=== PATIENT | female | born 1950 | race Hispanic/Latino ===

== ENCOUNTER 2021-12-03 15:33 | Emergency (ER) | payer MEDICARE, OTHER ==
[2021-12-03 16:01] VITALS: BP 113/49
--- NOTE | 2021-12-03 16:27 | Emergency Department Report ---
HPI - General Chief Complaint: Abdominal Pain Time Seen by Provider: 12/03/21 16:10 - HPI HPI: 71-year-old female presents to the emergency department with complaint of left-sided groin pain and feeling a "knot" started upon waking this morning. At first she says that the "knot" was down by the vagina/labia, then later she and after pressing on it she says that it "moved up here" (top of the groin), and then says "and later it was just gone." He denies any vaginal bleeding, vaginal discharge, dysuria, abdominal pain, back pain, fever. She denies any past medical history. She has not taken anything for symptoms prior to presentation. No recent travel or sick contacts at home. ED Past Medical Hx - Social History Smoking Status: Current Every Day Smoker Substance Use Type: None - Medications Home Medications: Home Medications Medication Instructions Recorded Confirmed Last Taken Type carisoprodoL [Soma] 350 mg PO QID 08/27/15 08/27/15 Unknown History HYDROcodone/APAP 7.5-325 [[place] 1 each PO Q6HR PRN #20 tablet 08/28/15 Unknown Rx 7.5/325] Sulfamethoxazole/Trimethoprim 1 each PO BID #20 tablet 08/28/15 Unknown Rx [Bactrim DS TAB] cephALEXin [Keflex] 500 mg PO Q6HR #40 capsule 08/28/15 Unknown Rx ED Review of Systems ROS: Stated complaint: LT LOWER PAIN Other details as noted in HPI Comment: All other systems reviewed and negative Constitutional: denies: chills, fever Eyes: denies: eye pain, vision change ENT: denies: ear pain, throat pain Respiratory: denies: cough, shortness of breath Cardiovascular: denies: chest pain, palpitations Gastrointestinal: other (A groin "knot" and left sided groin pain). denies: abdominal pain, vomiting Genitourinary: denies: dysuria, discharge Musculoskeletal: denies: back pain, arthralgia Skin: denies: rash, pruritus Neurological: denies: headache, weakness Physical Exam - Physical Exam Vital Signs: Vital Signs 12/03/21 15:59 Temperature 97.7 F Pulse Rate 77 Respiratory 16 Rate Blood Pressure 113/49 [Left] O2 Sat by Pulse 99 Oximetry Physical Exam: GENERAL: The patient is well-developed well-nourished. HENT: Normocephalic. Atraumatic. Patient has moist mucous membranes. EYES: Extraocular motions are intact. NECK: Supple. Trachea is midline. CHEST/LUNGS: Clear to auscultation. There is no respiratory distress noted. HEART/CARDIOVASCULAR: Regular. There is no tachycardia. There is no murmur. ABDOMEN: Abdomen is soft, nontender. Patient has normal bowel sounds. SKIN: Skin is warm and dry. NEURO: The patient is awake, alert, and oriented. The patient is cooperative. Normal speech. MUSCULOSKELETAL: There is no tenderness or deformity. There is no limitation range of motion. : There is reproducible left-sided inguinal/groin pain. No palpable hernia, lymphadenopathy. ED Course Vital Signs 12/03/21 15:59 Temperature 97.7 F Pulse Rate 77 Respiratory 16 Rate Blood Pressure 113/49 [Left] O2 Sat by Pulse 99 Oximetry - Reevaluation(s) Reevaluation #1: 12/03/21 16:26 I was chaperoned for groin examination by nurse practitioner Evi. ED Medical Decision Making - Lab Data Result diagrams: 12/03/21 16:36 12/03/21 16:36 Lab Results 12/03/21 12/03/21 Range/Units 16:36 16:36 WBC 9.7 (4.5-11.0) K/mm3 RBC 4.09 (3.65-5.03) M/mm3 Hgb 13.0 (10.1-14.3) gm/dl Hct 39.0 (30.3-42.9) % MCV 95 (79-97) fl MCH 32 (28-32) pg MCHC 33 (30-34) % RDW 13.6 (13.2-15.2) % Plt Count 258 (140-440) K/mm3 Lymph % (Auto) 34.9 (13.4-35.0) % [place] % (Auto) 5.5 (0.0-7.3) % Eos % (Auto) 1.6 (0.0-4.3) % Baso % (Auto) 0.5 (0.0-1.8) % Lymph # (Auto) 3.4 (1.2-5.4) K/mm3 [place] # (Auto) 0.5 (0.0-0.8) K/mm3 Eos # (Auto) 0.2 (0.0-0.4) K/mm3 Baso # (Auto) 0.1 (0.0-0.1) K/mm3 Seg Neutrophils % 57.5 (40.0-70.0) % Seg Neutrophils # 5.6 (1.8-7.7) K/mm3 Sodium 131 L (137-145) mmol/L Potassium 3.9 (3.6-5.0) mmol/L Chloride 96.6 L (98-107) mmol/L Carbon Dioxide 24 (22-30) mmol/L Anion Gap 14 mmol/L BUN 10 (7-17) mg/dL Creatinine 0.9 (0.6-1.2) mg/dL Estimated GFR > 60 ml/min BUN/Creatinine Ratio 11 % Glucose 93 (65-100) mg/dL Calcium 9.3 (8.4-10.2) mg/dL Total Bilirubin 0.20 (0.1-1.2) mg/dL AST 16 (5-40) units/L ALT 14 (7-56) units/L Alkaline Phosphatase 108 (35-129) units/L Total Protein 7.2 (6.3-8.2) g/dL Albumin 3.5 L (3.9-5) g/dL Albumin/Globulin Ratio 0.9 % - Radiology Data Radiology results: report reviewed CT ABDOMEN AND PELVIS WITH CONTRAST INDICATION / CLINICAL INFORMATION: lower abd and left sided pelvic pain. TECHNIQUE: Axial CT images were obtained through the abdomen and pelvis after 100 cc of Omnipaque [address] scans at this location are performed using CT dose reduction for ALARA by means of automated exposure control. COMPARISON: 09/04/2011 FINDINGS: LOWER CHEST: Redemonstrated reticular opacities in bilateral lung bases suggesting interstitial lung disease. AORTA / ARTERIES: No significant abnormality. IVC / VEINS: No significant abnormality. LYMPH NODES: No significant adenopathy. COLON: Moderate stool burden throughout the colon. APPENDIX: No significant abnormality. STOMACH / SMALL BOWEL: No significant abnormality. PERITONEUM: No free fluid. No free air. No fluid collection. LIVER: Right hepatic lobe cyst. GALLBLADDER: No significant abnormality. BILE DUCTS: No significant abnormality. PANCREAS: No significant abnormality. SPLEEN: No significant abnormality. ADRENALS: No significant abnormality. RIGHT KIDNEY / URETER: No significant abnormality. LEFT KIDNEY / URETER: No significant abnormality. URINARY BLADDER: No significant abnormality. REPRODUCTIVE ORGANS: No significant abnormality. SKELETAL SYSTEM: There is scattered degeneration. There is a compression deformity of L1. ADDITIONAL FINDINGS: None. IMPRESSION: 1. Moderate stool throughout colon, otherwise no acute intra-abdominal intrapelvic pathology. 2. Compression deformity of L1 of unknown chronicity. - Medical Decision Making This patient presented to the emergency department with a complaint of some type of "knot" to the left groin, followed by some pain in the same area. At first that "knot" moved up higher in the groin and then disappeared. On examination she does have some tenderness to palpation along the left groin but there is no obvious abnormality, abscess, lymphadenopathy, or etiology of her discomfort. Labs have been unremarkable including CBC and metabolic panel. CT scan of the abdomen pelvis does not show any acute process in the abdomen or pelvis, etiology of her discomfort, and incidentally shows a moderate amount of stool without any evidence of obstruction. Vital signs reassuring throughout her ED course including being afebrile. The patient be discharged home to follow-up with primary care and will return to the ER with any worsening of her symptoms or with any acute distress. Critical Care Time: No Critical care attestation.: If time is entered above; I have spent that time in minutes in the direct care of this critically ill patient, excluding procedure time. ED Disposition Clinical Impression: Left groin pain, Hyponatremia Disposition: HOME / SELF CARE / HOMELESS Is pt being admited?: No Condition: Stable Instructions: Pain Without a Known Cause, Abdominal Pain (ED) Additional Instructions: Please follow-up with your primary care physician in the next few days. Return to the emergency department with any worsening of your symptoms, new or concerning symptoms not addressed during this current emergency department visit, or with any acute distress. Referrals: Primary Care Physician, Your [Other] - 2-3 Days Time of Disposition: 19:22
[2021-12-03 16:54] LABS: Basophils # (Auto) 0.1 K/mm3 (0.0-0.1); Basophils % (Auto) 0.5 % (0.0-1.8); Eosinophils # (Auto) 0.2 K/mm3 (0.0-0.4); Eosinophils % (Auto) 1.6 % (0.0-4.3); Lymphocytes # (Auto) 3.4 K/mm3 (1.2-5.4); Lymphocytes % (Auto) 34.9 % (13.4-35.0); Mean Corpuscular HGB Conc 33 % (30-34); Mean Corpuscular Volume 95 fl (79-97); Monocytes # (Auto) 0.5 K/mm3 (0.0-0.8); Monocytes % (Auto) 5.5 % (0.0-7.3); Platelet Count 258 K/mm3 (140-440); Red Blood Count 4.09 M/mm3 (3.65-5.03); Red Cell Distribution Width 13.6 % (13.2-15.2)
[2021-12-03 17:16] LABS: Alanine Aminotransferase 14 units/L (7-56); Albumin 3.5 g/dL (3.9-5); BUN/Creatinine Ratio 11; Blood Urea Nitrogen 10 mg/dL (7-17); Calcium 9.3 mg/dL (8.4-10.2); Hemolysis Index 5
[2021-12-03] MEDS ORDERED: SODIUM CHLORIDE 0.9% 1000 ML 1,000 ML IV ONE (17:23)
--- NOTE | 2021-12-03 18:04 | Cat Scan Report ---
CT ABDOMEN AND PELVIS WITH CONTRAST INDICATION / CLINICAL INFORMATION: lower abd and left sided pelvic pain. TECHNIQUE: Axial CT images were obtained through the abdomen and pelvis after 100 cc of Omnipaque [address] scans at this location are performed using CT dose reduction for ALARA by means of automated exposure control. COMPARISON: 09/04/2011 FINDINGS: LOWER CHEST: Redemonstrated reticular opacities in bilateral lung bases suggesting interstitial lung disease. AORTA / ARTERIES: No significant abnormality. IVC / VEINS: No significant abnormality. LYMPH NODES: No significant adenopathy. COLON: Moderate stool burden throughout the colon. APPENDIX: No significant abnormality. STOMACH / SMALL BOWEL: No significant abnormality. PERITONEUM: No free fluid. No free air. No fluid collection. LIVER: Right hepatic lobe cyst. GALLBLADDER: No significant abnormality. BILE DUCTS: No significant abnormality. PANCREAS: No significant abnormality. SPLEEN: No significant abnormality. ADRENALS: No significant abnormality. RIGHT KIDNEY / URETER: No significant abnormality. LEFT KIDNEY / URETER: No significant abnormality. URINARY BLADDER: No significant abnormality. REPRODUCTIVE ORGANS: No significant abnormality. SKELETAL SYSTEM: There is scattered degeneration. There is a compression deformity of L1. ADDITIONAL FINDINGS: None. IMPRESSION: 1. Moderate stool throughout colon, otherwise no acute intra-abdominal intrapelvic pathology. 2. Compression deformity of L1 of unknown chronicity. Signer Name: Ki Ochoa DO Signed: 12/03/2021 5:59 PM Workstation Name: [id number]
== END 2021-12-03 20:03 | disposition home or self-care (01) ==
LOC: ED 15:33
DX: E87.1 Hypo-osmolality and hyponatremia (principal); R10.30 Lower abdominal pain, unspecified; F17.200 Nicotine dependence, unspecified, uncomplicated
CPT/HCPCS: 36415; 74177; 80053; 85025; 96360; 99284; J7030; Q9967; Q0162